=== PATIENT | female | born 2000 | race African-American/Black ===

== ENCOUNTER 2021-01-07 08:57 | Outpatient (RCR) | payer OTHER, SELFPAY | END 2021-02-23 23:59 | LOC: IMMUN 08:57 | PROVIDERS: PCP Pediatrics; Referring Provider Family Medicine; Visit Provider Family Medicine | DX: Z23 Encounter for immunization (principal) | CPT/HCPCS: 0001A; 0002A; 91300 ==

== ENCOUNTER → 2021-07-09 13:11 | Outpatient (CLI) | payer OTHER, SELFPAY ==
--- NOTE | 2021-07-09 13:14 | ECHOD_ITS ---
Reason For Study: ARRHYTHMIA Procedure This was a 2D Doppler, Color Flow transthoracic echocardiogram. Exam performed in department. Left Ventricle Normal LV size. Left ventricular systolic function is normal. The estimated ejection fraction is 60 %. No regional wall motion abnormalities noted. Right Ventricle Normal RV size. Normal systolic function. Atria Normal left atrium. Normal right atrium. Mitral Valve Mild diffuse mitral valve thickening. Mild (1+) eccentric mitral valve insufficiency. Tricuspid Valve Normal tricuspid valve. Aortic Valve Normal aortic valve. Trisinus/trileaflet aortic valve. Pulmonic Valve Normal pulmonic valve. Mild (1+) pulmonic valve insufficiency. Great Vessels Normal aortic root. The pulmonary artery is normal size. Normal inferior vena cava. Pericardium/Pleural No pericardial effusion. MMode/2D Measurements & Calculations LVIDd: 4.4 cm IVSd: 0.69 cm Ao root diam: 2.6 cm LVIDs: 2.9 cm LVPWd: 0.77 cm RVDd: 2.6 cm FS: 33.4 % LAV(MOD-bp): 44.1 ml LA A4 area: 14.3 cm2 LA dimension(2D): 3.0 cm LAV(MOD-bp) Indexed: 28.6 ml/m2 LAV(MOD-sp2): 52.3 ml LAV(MOD-sp4): 32.4 ml RA A4 area: 11.4 cm2 Time Measurements MV dec time: 0.17 sec Doppler Measurements & Calculations MV E max dale: 65.9 cm/sec Lat Peak E' Dale: 19.6 cm/sec Med Peak E' Dale: 10.6 cm/sec MV A max dale: 46.5 cm/sec E/E' lat: 3.4 E/E' med: 6.2 MV E/A: 1.4 Ao V2 max: 118.8 cm/sec LV V1 max: 98.2 cm/sec PA V2 max: 80.7 cm/sec Ao max P.6 mmHg LV V1 max P.9 mmHg TR max dale: 212.9 cm/sec TR max P.1 mmHg ECHO/Echo Complete Interpretation Summary Normal LV size. Left ventricular systolic function is normal. The estimated ejection fraction is 60 %. Mild diffuse mitral valve thickening. Mild (1+) eccentric mitral valve insufficiency. Ordering Physician: Prasanna^Josr^^^ Referring Physician: Shamir Sharpe Performed By: Virginia Stevens, RDCS, RVT
== END ==
LOC: PSN 13:12
PROVIDERS: PCP Pediatrics; Referring Provider Internal Medicine Cardiovascular Disease; Visit Provider Internal Medicine Cardiovascular Disease
DX: R55 Syncope and collapse (principal); R00.2 Palpitations
CPT/HCPCS: 93225; 93226; 93306

== ENCOUNTER 2021-10-12 13:21 | Outpatient (CLI) | payer OTHER, SELFPAY | END 2021-10-12 23:59 | disposition short-term general hospital (02) | LOC: IMMUN 10-20 13:25 | PROVIDERS: PCP Pediatrics; Visit Provider Family Medicine | DX: Z23 Encounter for immunization (principal) ==